=== PATIENT | male | born 1940 | race Caucasian/White ===

== ENCOUNTER 2017-12-07 07:37 | Day surgery (SDC) | payer MEDICARE, BC ==
[2017-12-07] MEDS ORDERED: LIDOCAINE HCL 1% MPF SOL ONE (07:57)
[2017-12-07] MEDS ORDERED: PROPOFOL 500 MG/50 ML EMU IV ONE (07:57)
[2017-12-07] MEDS ORDERED: BUPIVACAINE/EPI 0.5% 10 ML SOL INFIL ONE ×2 (08:19→08:24)
[2017-12-07 10:55] VITALS: BP 130/75; PULSE 55; RESP 20; TEMP 97.1; O2SAT 97
== END 2017-12-07 11:30 | disposition home or self-care (01) | DRG 394 ==
LOC: SURG 07:37
PROVIDERS: ATTEND Surgery
DX: K62.89 Other specified diseases of anus and rectum (principal); K62.5 Hemorrhage of anus and rectum; K57.32 Diverticulitis of large intestine without perforation or abscess without bleeding; D12.2 Benign neoplasm of ascending colon; K21.9 Gastro-esophageal reflux disease without esophagitis; K44.9 Diaphragmatic hernia without obstruction or gangrene; L29.0 Pruritus ani; Q82.8 Other specified congenital malformations of skin
CPT/HCPCS: J2001; J2704